=== PATIENT | male | born 1985 | race Two or more races ===

== ENCOUNTER 2020-08-16 10:54 | Outpatient (REF) | payer MEDICAID, SELFPAY | END 2020-08-16 10:55 | disposition home or self-care (01) | LOC: HO.LAB 10:54 | PROVIDERS: Visit Provider Internal Medicine | DX: Z20.828 Contact with and (suspected) exposure to other viral communicable diseases (principal) | CPT/HCPCS: C9803; U0003 ==

== ENCOUNTER 2020-09-15 10:15 | Outpatient (REF) | payer MEDICAID, SELFPAY | END 2020-09-15 10:16 | disposition home or self-care (01) | LOC: HO.LAB 10:15 | PROVIDERS: Visit Provider Internal Medicine | DX: Z20.822 Contact with and (suspected) exposure to COVID-19 (principal) | CPT/HCPCS: 36415; C9803; U0003 ==

== ENCOUNTER 2020-09-30 10:46 | Outpatient (REF) | payer MEDICAID, SELFPAY | END 2020-09-30 10:47 | disposition home or self-care (01) | LOC: HO.LAB 10:46 | PROVIDERS: Visit Provider Internal Medicine | DX: Z20.822 Contact with and (suspected) exposure to COVID-19 (principal) | CPT/HCPCS: 36415; C9803; U0003; U0005 ==

== ENCOUNTER 2023-01-07 23:43 | Emergency (ER) | payer MEDICAID, SELFPAY ==
--- NOTE | ~2023-01-07 | XR_ITS ---
EXAMINATION: XR CHEST CLINICAL INFORMATION: Injury COMPARISON: None available. TECHNIQUE: Frontal view of the chest was obtained. FINDINGS: No significant abnormality is noted involving the heart, lungs, mediastinum, bony thorax or soft tissues. XR/XR chest 1V IMPRESSION: Unremarkable examination.
[2023-01-08 00:05] VITALS: BP 102/72; PULSE 95; RESP 18; TEMP 36.5; O2SAT 98; BMI 26.6
== END 2023-01-08 01:18 | disposition left against medical advice (07) ==
LOC: HO.ED 01-08 01:17
PROVIDERS: Emergency Provider Emergency Medicine
DX: R07.81 Pleurodynia (principal); R51.9 Headache, unspecified; M54.2 Cervicalgia; M54.9 Dorsalgia, unspecified
CPT/HCPCS: 71045; 99281; 99283

== ENCOUNTER 2025-02-12 14:53 | Outpatient (REF) | payer MEDICAID, SELFPAY ==
--- NOTE | ~2025-02-12 | XR_ITS ---
EXAMINATION: XR KNEE, LEFT CLINICAL INFORMATION: pain COMPARISON: None available. TECHNIQUE: Four views of the left knee. FINDINGS: No fracture or joint effusion. Alignment is anatomic. Joint spaces are maintained. No abnormal soft tissue calcification. XR/XR knee LT 4V IMPRESSION: Normal left knee. Electronically signed by: Sharif Regan MD 02/12/2025 03:14 PM EDT
--- NOTE | ~2025-02-12 | XR_ITS ---
EXAMINATION: XR LUMBOSACRAL SPINE CLINICAL INFORMATION: pain COMPARISON: None available. TECHNIQUE: Three views of the lumbosacral spine. FINDINGS: There is no scoliosis. There is a normal lordosis. There are no subluxations. There is minimal chronic appearing wedging of T12 and L1. No acute fractures or compression deformity is identified. No suspicious bone lesion. Mild disc degeneration noted T12-L1, and L5-S1. Normal facet alignment without significant facet arthrosis. Sacrum and SI joints appear normal. Soft tissues appear normal. XR/XR lumbar spine 2-3V IMPRESSION: 1. No acute findings of the lumbar spine. 2. Early degenerative disc disease T12-L1 and L5-S1. 3. Minimal chronic appearing wedging of T12 and L1. Electronically signed by: Sharif Regan MD 02/12/2025 03:16 PM EDT
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
== END 2025-02-12 14:54 | disposition home or self-care (01) ==
LOC: HO.HHCX 14:53
PROVIDERS: Visit Provider Internal Medicine
DX: M25.562 Pain in left knee (principal); M54.50 Low back pain, unspecified
CPT/HCPCS: 72100; 73564

== ENCOUNTER → 2025-02-12 14:54 | Outpatient (BNV) | payer MEDICAID, SELFPAY | PROVIDERS: Visit Provider Radiology Diagnostic Radiology | DX: M25.562 Pain in left knee (principal); M51.360 Other intervertebral disc degeneration, lumbar region with discogenic back pain only | CPT/HCPCS: 72100; 73564 ==